=== PATIENT | male | born 1970 | race Caucasian/White ===

== ENCOUNTER 2018-12-16 18:11 | Emergency (ER) | payer OTHER, SELFPAY ==
[2018-12-16] VITALS (22 sets, daily range): BP systolic 134–150; BP diastolic 72–87; PULSE 46–66; RESP 11–17; TEMP 37.3; O2SAT 95–100
[2018-12-16] MEDS: Aspirin 81 MG CHEW 324 MG CH (18:28)
--- NOTE | 2018-12-16 18:39 | ED.GENADUL_ITS ---
Discharge Plan Disposition Patient Disposition: [facility] Condition: Stable Discharge Details Chief Complaint: Chest Pain Clinical Impression: Chest pain Primary Care Provider: Shay Fox ED Provider: Yonatan Hamlin Home Meds and New Rx's Prescriptions: No Action penicillin V potassium 500 MG tablet 500 mg PO QID 7 Days Qty: 30 RF: 0 Discharge Instructions Instructions: Chest Pain (ED) Additional Instructions: if your symptoms get significantly worse or you have new symptoms such as difficulty breathing or severe pain return to the emergency department Medical Decision Making 48 yo male who denies chronic medical problems or hx of smoking comes in with an episode of feeling off balance lasting about 30 seconds then a few minutes later had sharp left anterior chest pain lasting a few minutes and resolving on it's own. no radiation of the pain nor diaphoresis or n/v. He arrives without symptoms, no fevers recently or cough. he states he does have a left foot drop chronically and left leg is usually atrophied but is more enlarged over the past month. No recent immobilization and has been playing basketball and ambulating normally. Has no calf pain or edema on exam. I doubt dvt but given subjective nelarging and his symptoms will obtain cta for pe. He has a heart score of 1, will send troponin. No tearing back pain and normal vascular exam so doubt dissection pt remains asymptomatic and labs and imaging negative. Will obtain 2nd ekg and troponin and if negative given low heart score feel he can be d/c'd ' pt remains asymptomatic and is resting comfortable in bed, repeat troponin and ecg negaitve. Given low heart score and atypical symptoms feel he can be d/c'd and return precautions given Differential Diagnosis acs, vasovagal, pe Imaging Data Radiologic Study: Attestation: I personally reviewed and interpreted this imaging study as follows: Imaging: CT Scan Radiologist's impression: IMPRESSION: 1. No evidence of pulmonary embolus to the segmental level. 2. No aneurysm of the aorta. 3. No dissection of the aorta. Lab Data Lab results reviewed: Yes I reviewed the patient's lab results. ECG Data Attestation: I personally reviewed and interpreted this ECG (s) as follows: Prior ECG tracings: not available for review Interpretation: sinus bradycardia, rate of 56, pr 154, qtc 392, no acute st t wave ischemic changes 2nd ekg shows sinus bradycardia, rate of 44, pr 378, no acute st t wave ischemic changes from 1st ekg HPI General Mode of arrival: EMS . Date/Time Provider Initiated Documentation: 12/16/18 18:23 . Limitations to Documentation: no limitations . Information obtained by: patient . History of Present Illness 48 year old M presents to the emergency department with the chief complaint of dizziness, described as moderate, Quality is described as aching, and it has been now resolved. No relieving factors improve symptom(s), No exacerbating factors reported . Patient did receive the following treatments prior to arrival, none Related Data Home Medications Medication Instructions Recorded Confirmed penicillin V potassium 500 mg PO QID 7 Days #30 tablet 09/11/17 12/16/18 Previous Rx's Medication Instructions Recorded penicillin V potassium 500 mg PO QID 7 Days #30 tablet 09/11/17 Allergies Allergy/AdvReac Type Severity Reaction Status Date / Time morphine Allergy Hypoventila Unverified 09/11/17 08:10 tion bee stings Allergy Uncoded 12/16/18 18:17 General Stated Complaint: Chest Pain CLAUDIA: 2 Review of Systems Review of Systems All systems reviewed & are unremarkable except as noted in HPI and below Constitutional Denies chills, Denies fever(s) and Denies weakness Cardiovascular Denies chest pain and Denies dyspnea Respiratory Denies cough and Denies dyspnea Gastrointestinal Denies abdominal pain, Denies nausea and Denies vomiting Neurologic Denies weakness PFSH Social History Substance use type: does not use Do you feel safe in your relationship?: Yes Exam Const General: no acute distress Orientation: alert HENMT Head: normal to inspection Ears: external ears normal General nose exam: external nose normal Mouth: moist mucous membranes Eyes General: appearance normal, both eyes and all related structures Neck Neck: normal visual inspection Resp Effort & Inspection: normal respiratory effort and able to speak in complete sentences Cardio Rate: regular rate Skin General skin exam: no rashes or lesions noted Neuro General: alert and oriented x3 Extrem General: normal to inspection Psych Mental Status: mental status grossly normal Course Vital Signs Temperature 37.3 C 12/16/18 18:07 Pulse 59 L 12/16/18 18:07 Respiratory Rate 16 12/16/18 18:07 Blood Pressure 140/87 12/16/18 18:07 Pulse Oximetry 98 12/16/18 18:07 Temperature 37.3 C 12/16/18 18:07 Pulse 59 L 12/16/18 18:07 Respiratory Rate 16 12/16/18 18:22 Respiratory Effort Non-Labored 12/16/18 18:22 Respiratory Depth Normal 12/16/18 18:22 Respiratory Pattern Normal 12/16/18 18:22 Blood Pressure 140/87 12/16/18 18:07 Pulse Oximetry 98 12/16/18 18:07 Oxygen Delivery Method Room Air 12/16/18 18:07 Oxygen Flow Rate 0 12/16/18 18:07 Pain Level 0 12/16/18 18:07
[2018-12-16 18:42] LABS: Absolute Basophil Count 0.03 k/cumm (0.0-0.2); Absolute Eosinophil Count 0.35 k/cumm (0.0-0.7); Absolute Lymphocyte Count 2.81 k/cumm (1.2-3.4); Absolute Neutrophil Count 3.82 k/cumm (1.2-6.7); Basophils % 0.4; Eosinophils % 4.6; HGB 13.1 g/dL (13.5-17.5); Lymphocytes % 36.9; Mean Corp. HGB Concentration 32.8 g/dL (32.0-36.0); Mean Corpuscular Hemoglobin 29.1 pg (27.0-33.0); Mean Corpuscular Volume 88.9 fL (80-95); Mean Platelet Volume 10.8 fL (8.0-11.0); Monocytes % 7.9; Neutrophils % 50.2; Platelet Count 320 x1000/uL (130-400); White Blood Cell Count 7.61 k/cumm (4.4-10.8)
[2018-12-16 19:02] LABS: Magnesium 2.3 mg/dL (1.8-2.4); NT-proBNP 66 pg/mL; Troponin I < 0.05 ng/mL (0.00-0.06)
--- NOTE | 2018-12-16 19:05 | DI.CT_ITS ---
SYMPTOMS/DIAGNOSIS: CHEST PAIN, LEG SWELLING CT ANGIOGRAPHY OF THE CHEST: CT angiography was performed with multi slice acquisition and multi planar and 3D reconstruction. Routine examination was performed. There is no evidence of a pulmonary embolus. The thoracic aorta is of normal caliber. No aneurysm or dissection is seen. The heart size is within normal limits. No significant pericardial effusion is seen. No evidence of right ventricular dysfunction is present. No thoracic adenopathy, pleural effusion or pneumothorax is identified. No focal consolidating infiltrates are seen. The tracheobronchial tree is unremarkable. Degenerative changes are seen in the spine. IMPRESSION: No evidence of a pulmonary embolus, thoracic aortic aneurysm or dissection.
[2018-12-16] MEDS: Normal Saline 1,000 ML 1000 ML IV (19:30)
--- NOTE | 2018-12-16 19:50 | DI.VRAD_ITS ---
EXAM: CT Angiography Chest With Contrast EXAM DATE/TIME: 12/16/2018 6:40 PM CLINICAL HISTORY: 48 years old, male; Type not specified; Patient HX: Chest pain with leg swelling TECHNIQUE: Imaging protocol: Axial computed tomographic angiography images of the chest with intravenous contrast using CT angiography protocol. Coronal and sagittal reformatted images were created and reviewed. 3D rendering: MIP reconstructed images were created and reviewed. COMPARISON: No relevant prior studies available. FINDINGS: Pulmonary arteries: No evidence of pulmonary embolus to the segmental level. Aorta: No aneurysm of the aorta. No dissection of the aorta. Lungs: Unremarkable. No consolidation. No masses. Pleural space: Unremarkable. No pneumothorax. No pleural effusion. Heart: Unremarkable. No cardiomegaly. No pericardial effusion. Lymph nodes: Unremarkable. No enlarged lymph nodes. Bones/joints: Unremarkable. No acute fracture. Soft tissues: Unremarkable. IMPRESSION: 1. No evidence of pulmonary embolus to the segmental level. 2. No aneurysm of the aorta. 3. No dissection of the aorta. Dictated and Authenticated by: Kath Chaparro MD. Ordering:PINKY Tam MD
[2018-12-16 21:43] LABS: Troponin I < 0.05 ng/mL (0.00-0.06)
== END 2018-12-16 22:04 | disposition home or self-care (01) ==
PROVIDERS: Emergency Provider Emergency Medicine; PCP Internal Medicine
DX: R07.9 Chest pain, unspecified (principal); R00.1 Bradycardia, unspecified
CPT/HCPCS: 36415; 71275; 93005; 96360; 99285; 83735; 83880; 84484; 85025; 93010